=== PATIENT | male | born 1955 | race Caucasian/White ===

== ENCOUNTER → 2016-10-11 07:45 | Outpatient (CLI) | payer MEDICARE | END | disposition home or self-care (01) | LOC: D.RT 07:45 | DX: J44.9 Chronic obstructive pulmonary disease, unspecified (principal) ==

== ENCOUNTER → 2017-01-03 14:43 | Outpatient (CLI) | payer MEDICARE | END | disposition home or self-care (01) | LOC: D.CT 14:43 | DX: R94.2 Abnormal results of pulmonary function studies (principal) ==

== ENCOUNTER 2018-05-06 14:32 | Emergency (ER) | payer MEDICARE ==
[~2018-05-06] VITALS: Ht 177.8 cm; Wt 130.9 kg
[2018-05-06 14:49] VITALS: Ht 177.8 cm; Wt 130.9 kg
[2018-05-06] MEDS ORDERED: DOXYCYCLINE HY100 M2 PO (14:51)
[2018-05-06] MEDS ORDERED: GLUCOTROL ER2.5 MG PO (14:51)
[2018-05-06] MEDS ORDERED: NEURONTIN 300300 MG PO (14:51)
[2018-05-06] MEDS ORDERED: LAMICTAL150 M1 PO (14:52)
[2018-05-06] MEDS ORDERED: SINGULAIR10 MG PO (14:53)
[2018-05-06] MEDS ORDERED: BACTROBAN CREAM15 GM TOPICAL (14:53)
[2018-05-06] MEDS ORDERED: KLOR-CON 1010 MEQ PO (14:53)
[2018-05-06] MEDS ORDERED: MOBIC7.5 MG PO (14:53)
[2018-05-06] MEDS ORDERED: ALBUTEROL SULF8.5 GM INH (14:54)
[2018-05-06] MEDS ORDERED: PHENERGAN6.25 MG/5 PO (14:56)
[2018-05-06] MEDS ORDERED: ROPINIROLE HCL2 MG PO (14:56)
[2018-05-06] MEDS ORDERED: SPIRIVA RESPIMAT4 G1 INH (14:56)
[2018-05-06] MEDS ORDERED: IMITREX100 MG PO (14:57)
[2018-05-06] MEDS ORDERED: TOPAMAX200 MG PO (14:57)
[2018-05-06] MEDS ORDERED: DESERYL50 M2 PO (14:57)
[2018-05-06] MEDS ORDERED: MAXZIDE 75/501 TAB PO (14:58)
[2018-05-06] MEDS ORDERED: TESSALON PERLE100 MG PO (14:59)
[2018-05-06] MEDS ORDERED: ABILIFY10 MG PO (14:59)
[2018-05-06] MEDS ORDERED: LIPITOR10 MG (14:59)
[2018-05-06] MEDS ORDERED: ADVAIR HFA [SP]12 GM INH (14:59)
[2018-05-06] MEDS ORDERED: BUSPAR10 MG PO (15:00)
[2018-05-06] MEDS ORDERED: NAPROSYN500 MG PO (17:00)
[2018-05-06] MEDS ORDERED: CYCLOBENZAPRINE10 MG PO (17:00)
[2018-05-06 17:10] VITALS: BP 150/74
== END 2018-05-06 17:11 | disposition home or self-care (01) ==
LOC: D.ER 14:32
DX: S16.1XXA Strain of muscle, fascia and tendon at neck level, initial encounter (principal); V43.52XA Car driver injured in collision with other type car in traffic accident, initial encounter; Y93.89 Activity, other specified; Y92.410 Unspecified street and highway as the place of occurrence of the external cause; E11.9 Type 2 diabetes mellitus without complications; I50.9 Heart failure, unspecified

== ENCOUNTER 2018-05-28 12:31 | Emergency (ER) | payer MEDICARE ==
[~2018-05-28] VITALS: Ht 177.8 cm; Wt 127.3 kg
[~2018-05-28 12:31] MED LIST: ABILIFY10 MG PO; ADVAIR HFA [SP]12 GM INH; ALBUTEROL SULF8.5 GM INH; BACTROBAN CREAM15 GM TOPICAL; BUSPAR10 MG PO; CYCLOBENZAPRINE10 MG PO; DESERYL50 M2 PO; DOXYCYCLINE HY100 M2 PO; GLUCOTROL ER2.5 MG PO; IMITREX100 MG PO; KLOR-CON 1010 MEQ PO; LAMICTAL150 M1 PO; LIPITOR10 MG; MAXZIDE 75/501 TAB PO; MOBIC7.5 MG PO; NAPROSYN500 MG PO; NEURONTIN 300300 MG PO; PHENERGAN6.25 MG/5 PO; ROPINIROLE HCL2 MG PO; SINGULAIR10 MG PO; SPIRIVA RESPIMAT4 G1 INH; TESSALON PERLE100 MG PO; TOPAMAX200 MG PO
[2018-05-28 12:34] VITALS: Ht 177.8 cm; Wt 127.3 kg
[2018-05-28] MEDS ORDERED: CYCLOBENZAPRINE10 MG PO (13:56)
[2018-05-28] MEDS ORDERED: ACETAMINOPHEN500 M1 PO (13:56)
[2018-05-28] MEDS ORDERED: IBUPROFEN800 MG PO (13:56)
[2018-05-28 14:47] VITALS: BP 155/88
== END 2018-05-28 14:48 | disposition home or self-care (01) ==
LOC: D.ER 12:31
DX: M54.2 Cervicalgia (principal); S13.4XXA Sprain of ligaments of cervical spine, initial encounter; V43.52XA Car driver injured in collision with other type car in traffic accident, initial encounter; Y93.89 Activity, other specified; Y92.410 Unspecified street and highway as the place of occurrence of the external cause; G40.909 Epilepsy, unspecified, not intractable, without status epilepticus; I10 Essential (primary) hypertension

== ENCOUNTER 2018-12-21 11:00 | Day surgery (SDC) | payer MEDICARE, OTHER ==
[2018-12-18 12:09] LABS: HEMATOCRIT 48.7 % (42.0-54.0); HEMOGLOBIN 16.4 g/dL (13.5-17.5); MCH 28.6 pg (26.0-34.0); MCHC 33.7 g/dL (31.0-37.0); MEAN PLATELET VOLUME 9.4 fL (7.4-10.4); RBC 5.73 10x6/uL (4.20-6.10); RDW 14.3 % (11.5-14.5); WBC 10.2 10x3/uL (4.8-10.8)
[2018-12-18 12:23] LABS: ANION GAP 10.7 mmol/L (8-16); CALCIUM 8.7 mg/dL (8.5-10.1); CARBON DIOXIDE 30.6 mmol/L (21.0-32.0); CREATININE - SERUM 1.5 mg/dL (0.6-1.3); POTASSIUM - SERUM 3.3 mmol/L (3.5-5.1)
[~2018-12-21] VITALS: Ht 177.8 cm; Wt 136.1 kg
[~2018-12-21 11:00] MED LIST changes: +ACETAMINOPHEN500 M1 PO; +EFFEXOR75 MG PO; +IBUPROFEN800 MG PO
[2018-12-21 13:34] VITALS: BP 156/87; Ht 177.8 cm; Wt 136.1 kg
--- NOTE | 2018-12-21 14:08 | NUR ---
PT ASSESSED A LOW RISK FOR SUICIDE. DR. MENESES NOTIFIED AND RESOURCES GIVEN TO PT. PT VERBALIZED UNDERSTANDING OF RESOURCES.
--- NOTE | 2018-12-21 15:06 | NUR ---
REC'D FROM [facility]. NOBODY CURRENTLY AT BEDSIDE. AMBULATED TO THE BATHROOM AND VOIDED WITHOUT DIFFICULTY. BLANE CAMERON BROUGHT TO PT.
--- NOTE | 2018-12-21 15:35 | NUR ---
TOLERATING DIET. WAITING FOR FRIEND TO COME BACK TO THE HOSPITAL.
--- NOTE | 2018-12-21 15:44 | OP ---
PATIENT NAME: ALEX MCKEON MEDICAL RECORD: [id number] :51 LOCATION:D.OPS ADMISSION DATE: SURGEON: EMMANUELLE MANUEL MD DATE OF OPERATION: 12/21/2018 SURGEON: Emmanuelle Manuel MD ANESTHESIA: TIVA by Altagracia Zaragoza CRNA. DIAGNOSES: Obstructive benign prostatic hyperplasia. PSA is 0.84. ANA LAURA is 30 gram prostate. IPSS is 9. Quality of life is 2. Postvoid residual is 33 mL. PROCEDURE: UroLift times 4 in box configuration. FINDINGS: Obstructive bladder neck. ESTIMATED BLOOD LOSS: None. CLINICAL HISTORY: This is a 63-year-old male, who complains of urinary incontinence. It has become worse over the past year. He has nocturia times 2 and daytime urinary frequency every 1-1/2 to 2 hours. He has urge incontinence. He is on Toviaz, which helps a little bit. He had problems with urinary tract infections in the early when he was still living in [place]. His urinalysis was normal at the office visit. His postvoid residual was 33 mL. His prostatic voiding symptom scores are high. HE IS ALLERGIC TO LEVAQUIN. He was given Ance[facility] lactation specialist to the OR. DESCRIPTION OF PROCEDURE: The patient was given IV sedation. He was placed in dorsal lithotomy position and prepped and draped. The UroLift score was introduced into the prostatic urethra. There are no penile urethral strictures. The prostatic urethra shows obstruction, mainly at the bladder neck level. Going into the bladder, there are no bladder tumors. There were single ureteral orifices on each side. The bladder was mildly trabeculated. I decided to put the 4 UroLift units in the box configuration to 1.5 cm distal to the bladder neck. The first 2 were placed anterolaterally at the anterolateral sulcus of the lateral lobe. Then, the other 2 were placed towards the mid urethral level. This opened up the bladder neck nicely. The bladder was left partly full for a voiding trial. I will see the patient in followup in 1 months' time. TRANSINT:[id number] Voice Confirmation ID: [id number] DOCUMENT ID: [id number] EMMANUELLE MANUEL MD at 1546 CC: [id number] DICTATION DATE: 12/21/18 1500 PERINATAL INSTRUCTOR: 12/21/18 1521 [facility] 0 [facility], [facility]901
--- NOTE | 2018-12-21 16:05 | NUR ---
TOLERATED DIET. IV DC'D WITH CATHETER INTACT.
--- NOTE | 2018-12-21 16:40 | NUR ---
WRITTEN AND VERBAL DC INST. GIVEN TO PT. VERBALIZED UNDERSTANDING.
--- NOTE | 2018-12-21 16:50 | NUR ---
DC'D HOME WITH FRIEND VIA PRIVATE VEHICLE. STABLE AT TIME OF DC.
[2018-12-22] MEDS ORDERED: TYLENOL W/CODEI1 TAB PO (04:47)
== END 2018-12-21 16:50 | disposition home or self-care (01) ==
LOC: D.OPS 11:00 → D.PAN 13:15 → D.OPS 16:50
PROVIDERS: Anesthesiology; ATTEND Urology
DX: N40.1 Benign prostatic hyperplasia with lower urinary tract symptoms (principal); N13.8 Other obstructive and reflux uropathy; Z01.812 Encounter for preprocedural laboratory examination

== ENCOUNTER 2018-12-22 03:41 | Emergency (ER) | payer MEDICARE, OTHER ==
[~2018-12-22] VITALS: Ht 177.8 cm; Wt 131.4 kg
[2018-12-22 03:46] VITALS: Ht 177.8 cm; Wt 131.4 kg
[2018-12-22] MEDS ORDERED: TYLENOL W/CODEI1 TAB PO (04:47)
[2018-12-22 05:15] VITALS: BP 143/72
== END 2018-12-22 05:14 | disposition home or self-care (01) ==
LOC: D.ER 03:41
DX: N99.89 Other postprocedural complications and disorders of genitourinary system (principal); R33.9 Retention of urine, unspecified; I10 Essential (primary) hypertension; J44.9 Chronic obstructive pulmonary disease, unspecified

== ENCOUNTER 2018-12-24 14:58 | Emergency (ER) | payer MEDICARE, OTHER ==
[~2018-12-24] VITALS: Ht 177.8 cm; Wt 136.4 kg
[~2018-12-24 14:58] MED LIST changes: +TYLENOL W/CODEI1 TAB PO
[2018-12-24 15:00] VITALS: Ht 177.8 cm; Wt 136.4 kg
[2018-12-24 16:14] VITALS: BP 131/73
== END 2018-12-24 16:14 | disposition home or self-care (01) ==
LOC: D.ER 14:58
DX: S00.512A Abrasion of oral cavity, initial encounter (principal); X58.XXXA Exposure to other specified factors, initial encounter; I10 Essential (primary) hypertension; J44.9 Chronic obstructive pulmonary disease, unspecified

== ENCOUNTER → 2019-01-19 15:34 | Outpatient (CLI) | payer MEDICARE, OTHER ==
[2018-12-24 15:00] VITALS: BMI 43.1
== END | disposition home or self-care (01) ==
LOC: D.LABREF 15:34
PROVIDERS: ATTEND Urology
DX: D72.819 Decreased white blood cell count, unspecified (principal)

== ENCOUNTER 2019-03-31 02:15 | Emergency (ER) | payer MEDICARE, OTHER ==
[~2019-03-31] VITALS: Ht 177.8 cm; Wt 138.6 kg
[2019-03-31 02:25] VITALS: Ht 177.8 cm; Wt 138.6 kg
[2019-03-31] MEDS ORDERED: HYDROCODONE-A1 UDTA2 PO (03:07)
[2019-03-31 03:47] VITALS: BP 150/75
== END 2019-03-31 03:47 | disposition home or self-care (01) ==
LOC: D.ER 02:15
DX: M54.2 Cervicalgia (principal); V89.2XXA Person injured in unspecified motor-vehicle accident, traffic, initial encounter